=== PATIENT | male | born 1965 | race Caucasian/White ===

== ENCOUNTER 2018-09-06 09:27 | Observation (INO) | payer OTHER ==
[~2018-09-06] VITALS: Ht 172.7 cm; Wt 83.9 kg
[2018-09-06 09:28] VITALS: BP 152/95
[2018-09-06] MEDS ORDERED: PROZAC10 MG PO (09:30)
[2018-09-06 09:48] LABS: ABSOLUTE BASOPHILS 0.1 thou/uL (0.0-0.2); ABSOLUTE LYMPHOCYTES 1.7 thou/uL (0.8-5.3); ABSOLUTE MONOCYTES 0.8 thou/uL (0.0-1.2); ABSOLUTE NEUTROPHILS 3.8 thou/uL (1.6-8.1); BASOPHILS 0.9 %; EOSINOPHILS 0.7 %; HEMATOCRIT 44.5 % (42.0-52.0); HEMOGLOBIN 15.3 gm/dL (14.0-18.0); MCH 30.4 pg (26.0-34.0); MCHC 34.3 g/dL (28.0-37.0); MCV 88.5 fL (80.0-100.0); MONOCYTES 12.5 %; MPV 7.3 fl. (7.2-11.1); NUCLEATED RBCS 0 /100WBC; PLATELET COUNT* 251 thou/uL (150-400); POLYS 58.9 %; RBC 5.03 mil/uL (4.50-6.00); RDW-CV 12.2 % (10.5-14.5); WBC 6.4 thou/uL (4.0-11.0)
[2018-09-06 10:00] LABS: ANION GAP 7 mmol/L (7-16); BUN 22 mg/dL (7-18); CHLORIDE 101 mmol/L (98-107); CO2 31 mmol/L (21-32); GLUCOSE 85 mg/dL (70-99); POTASSIUM 3.9 mmol/L (3.5-5.1); SODIUM 139 mmol/L (136-145)
[2018-09-06 10:07] LABS: ALKALINE PHOSPHATASE 67 U/L (46-116); LIPASE 123 U/L (73-393); MAGNESIUM 2.4 mg/dL (1.8-2.4); SGOT 21 U/L (15-37); SGPT 33 U/L (30-65); TOTAL BILIRUBIN 0.5 mg/dL (<0.1-1.0); TOTAL PROTEIN 7.3 g/dL (6.4-8.2); TROPONIN-I LEVEL <0.06 ng/mL (<0.06)
--- NOTE | 2018-09-06 11:55 | EKG ---
[place] [address] ELECTROCARDIOGRAM REPORT Name: LISSETH KAN Room: [place] [address] ADM IN .R.#: [id number] Admission: 09/06/18 Attend Phys: Matteo Barnes Discharge: Date of : 69 Report #: [id number] THIS REPORT FOR: //name// [facility] ED Test Date: 2018-09-06 Test Time: 09:30:40 Pat Name: LISSETH LOMBARDINTON Department: Room: [facility] Gender: Oil Processing Technician: Tenisha TIRADO : 1965 Requested By: Bry Vyas Order Number: [id number] MD: Sage Alejandra Measurements Intervals [place] Rate: 87 P: 61 [place]: 156 QRS: 2 QRSD: 95 T: 18 QT: 379 QTc: 456 Interpretive Statements Sinus rhythm No previous ECG available for comparison Electronically Signed On 09-06-2018 11:55:39 BAKERY SALES CLERK by Sage Alejandra [email or web address] <ELECTRONICALLY SIGNED> By: Sage Alejandra MD, [facility] 09/06/18 1155 0930 9 Sage Alejandra MD, FACC /EPI
[2018-09-06 14:20] VITALS: BP 125/83
[2018-09-06 14:23] VITALS: BP 103/77
--- NOTE | 2018-09-06 14:39 | EXE ---
[place] [address] STRESS ECHOCARDIOGRAM Name: LISSETH KAN Room: [address] IN [facility]#: [id number] Admission: 09/06/18 Attend Phys: Shamika Boone Discharge: Date of : 69 Date of Service: 09/06/18 1439 Report #: [id number] THIS REPORT FOR: //name// APPROVED REPORT Study performed: 09/06/2018 13:41:27 Exam: Stress Echocardiogram Indication: Chest pain , Dyspnea Patient Location: In-Patient Stress Nurse: Annalisa Morton RN Room #: Supervising Physician: Sage Alejandra MD Ht: 5 ft 8 in HR: 75 bpm BP: 110/71 mmHg Medical History Cardiac Risk Factors: Tobacco History (Former), FHX of CAD Procedure The patient underwent an Exercise Stress Test using the Imer Protocol. Blood pressure, heart rate, and EKG were monitored. An Echocardiogram was performed by associate technician in four stages in quad fashion. At peak stress, four selected images were obtained and placed side by side with resting images for comparison. Stress Test Details Stress Test: Exercise stress testing was performed using a Imer protocol. HR Resting HR: 75 bpm Max Heart Rate (APMHR): 170 bpm Max HR Achieved: 143 bpm Target HR (85% APMHR): 144 bpm % of APMHR: 84 Recovery HR: 91 bpm HR response to stress: Normal HR response to stress BP Resting BP: 110/71 mmHg Max BP: 173/96 mmHg Recovery BP: 164/97 mmHg BP response to stress: Normal blood pressure [place] [address] STRESS ECHOCARDIOGRAM Name: LISSETH KAN Room: [address]#: [id number] Admission: 09/06/18 Attend Phys: Shamika Boone Discharge: Date of : 69 Date of Service: 09/06/18 1439 Report #: [id number] Resting ECG: Sinus Rhythm Stress ECG: Sinus Tachycardia ST Change: Normal Maximum ST Deviation: 0 mm Arrhythmia: None Recovery ECG: Sinus Rhythm Recovery ST Change: Normal Recovery ST Deviation: 0 mm Recovery Arrhythmia: None Clinical Reason for Termination: Dyspnea, Maximal effort Exercise duration: 9 min 48 sec Highest Stage Achieved: Stage 4: 4.2 mph at 16% grade. Exercise capacity: 11.44 METs Pre-Stress Echo The resting Echocardiogram showed normal left ventricular contractility with an estimated Ejection Fraction of about 55-60%. Post-Stress Echo The stress Echocardiogram showed normal left ventricular contractility with an estimated Ejection Fraction of about 65-70%. Conclusion Clinical Response: Equivocal Exercise Capacity: Average Stress ECG Response: Non-ischemic Stress Echo Images: Non-ischemic low risk stress echo for future cardiac events Other Information Study Quality: Good <Conclusion> low risk stress echo for future cardiac events <ELECTRONICALLY SIGNED> By: Sage Alejandra MD, FACC 09/06/181438 38 38 Sage Alejandra MD, FACC /INF
[2018-09-06] MEDS ORDERED: CYMBALTA60 MG PO (14:41)
[2018-09-06 15:47] VITALS: BP 103/77
--- NOTE | 2018-09-06 16:01 | EKG ---
[place] [address] ELECTROCARDIOGRAM REPORT Name: LISSETH KAN Room: [address] ADM IN M.R.#: [id number] Admission: 09/06/18 Attend Phys: Matteo Barnes Discharge: Date of : 69 Report #: [id number] THIS REPORT FOR: //name// [facility] ED Test Date: 2018-09-06 Test Time: 11:48:58 Pat Name: LISSETH KAN Department: Room: [facility] Gender: Body Engineer: Tenisha TIRADO : 1965 Requested By: Bry Vyas Order Number: [id number] MD: Sage Alejandra Measurements Intervals [place] Rate: 76 P: 37 [place]: 175 QRS: -16 QRSD: 98 T: 17 QT: 368 QTc: 414 Interpretive Statements Sinus rhythm Borderline left axis deviation Artifact in lead(s) I,aVR,aVL,aVF Compared to ECG 09/06/2018 09:30:40 No significant changes Electronically Signed On 09-06-2018 16:01:37 GAS STATION ATTENDANT by Sage Alejandra [email or web address] <ELECTRONICALLY SIGNED> By: Sage Alejandra MD, FACC 09/06/18 1601 1148 1148 Sage Alejandra MD, [facility] /EPI
--- NOTE | 2018-09-06 16:02 | EKG ---
[place] [address] ELECTROCARDIOGRAM REPORT Name: LISSETH KAN Room: [address] ADM IN M.R.#: [id number] Admission: 09/06/18 Attend Phys: Matteo Barnes Discharge: Date of : 69 Report #: [id number] THIS REPORT FOR: //name// [facility] ED Test Date: 2018-09-06 Test Time: 11:50:04 Pat Name: LISSETH LUCIUS Department: Room: [facility] Gender: Interim Controller: Tenisha TIRADO : 1965 Requested By: Bry Vyas Order Number: [id number] MD: Sage Alejandra Measurements Intervals [place] Rate: 75 P: 36 [place]: 166 QRS: -8 QRSD: 100 T: 26 QT: 386 QTc: 432 Interpretive Statements Sinus rhythm Electronically Signed On 09-06-2018 16:02:02 CHAMPAGNE MAKER by Sage Alejandra [email or web address] <ELECTRONICALLY SIGNED> By: Sage Alejandra MD, [facility] 09/06/18 1602 1150 1150 Sage Alejandra MD, FACC /EPI
== END 2018-09-06 16:00 | disposition home or self-care (01) ==
LOC: M.ERS 09:27 → M.TBA-ER 10:16 → M.2W 10:16
PROVIDERS: Emergency Medicine Emergency Medical Services; ADMIT Internal Medicine
DX: I20.0 Unstable angina (principal); F32.9 Major depressive disorder, single episode, unspecified; F10.21 Alcohol dependence, in remission; Z87.891 Personal history of nicotine dependence; Z98.890 Other specified postprocedural states; Z79.899 Other long term (current) drug therapy

== ENCOUNTER → 2019-09-21 | Outpatient (CLI) | payer OTHER ==
[~2019-09-21] MED LIST: CYMBALTA60 MG PO; PROZAC10 MG PO
== END ==
LOC: M.ULTRA 09-14 09:00
DX: K44.9 Diaphragmatic hernia without obstruction or gangrene (principal); M79.89 Other specified soft tissue disorders; M79.604 Pain in right leg

== ENCOUNTER 2019-10-31 10:38 | Observation (INO) | payer OTHER ==
[~2019-10-31] VITALS: Ht 172.7 cm; Wt 86.2 kg
--- NOTE | ~2019-10-31 | H ---
[address] [address] HISTORY AND PHYSICAL Name: LISSETH KAN Room: [address] Christina Mccormick#: [id number] Admission: 10/31/19 Attend Phys: Teddy Christina DO Discharge: 11/01/19 Date of : 69 Report #: [id number] THIS REPORT FOR: //name// Please refer to the History and Physical performed in the physician's office. By: [id number] Records Staff DAVID /ORION
--- NOTE | ~2019-10-31 | OP ---
[facility] [address] [place] [address] OPERATIVE REPORT Name: LISSETH KAN Room: [address] Christina Mccormick#: [id number] Admission: 10/31/19 Attend Phys: Teddy Christina DO Discharge: 11/01/19 Date of : 69 Report #: [id number] THIS REPORT FOR: //name// CC: Teddy Shore DATE OF SERVICE: 10/31/2019 PREOPERATIVE DIAGNOSIS: Incisional/ventral hernia. POSTOPERATIVE DIAGNOSIS: Incisional/ventral hernia. PROCEDURE: Da Kasie robotic-assisted ventral hernia repair with 20 x 15 cm Ventralight mesh and also lysis of adhesions taking 45 minutes. SURGEON: Teddy Christina DO SWITCH OPERATOR: Missael Jung DO, PGY3, resident. ANESTHESIA: General endotracheal and TAP blocks. ESTIMATED BLOOD LOSS: Less than 20 mL. COMPLICATIONS: None. REFERRING PHYSICIAN: Xiomara Shore DO DESCRIPTION OF PROCEDURE: After obtaining proper consents and discussing risks and complications with the patient, he was taken to the operating room, laid in the supine position, administered general anesthesia. He was then prepped and draped in the usual sterile fashion including placing a bump under the right side. We then performed a timeout confirmed the appropriate patient and procedure. Preoperative antibiotics had been given. SCDs were in place. The patient had been prepped and draped in the usual sterile fashion. We then made a small right subcostal incision. A 12-mm Visiport was then used to enter the abdominal cavity. Once the abdominal cavity was entered, insufflation was begun. Once insufflation was complete, full visual inspection of the anterior abdominal organs was performed. This revealed adhesions along the entire midline. We were not able to visualize a hernia at this point because of the adhesions. We then placed two more 8 mm da Kasie ports. We then docked the da Kasie robot to all of these ports and brought an 8 mm port down through our 12 mm Visiport. We then inserted instruments and I broke scrub and went on console. Once on console, I began by taking down the omental adhesions along the midline. In doing this, we did identify multiple hernias as well as diastasis recti in the midline. The lysis of adhesions was done using blunt and sharp dissection with monopolar scissors and bipolar cautery [place] [address] OPERATIVE REPORT Name: LISSETH KAN Room: [address] Christina Mccormick#: [id number] Admission: 10/31/19 Attend Phys: Teddy Christina DO Discharge: 11/01/19 Date of : 69 Report #: [id number] was done to take down the adhesions across the entire abdominal cavity from the xiphoid all the way down to the pubic bone as well. Once these adhesions were all taken down, which lasted approximately 45 minutes, I was easily able to visualize multiple hernias along the midline from the umbilicus up to the xiphoid. At this point, we elected to close the hernia defects, all is one. I inserted 2 permanent Quill sutures, 0 Quill. Then, I was able to close the hernia defect in a running fashion from the top down to the middle and then from the bottom up to the middle of the incision. Once the entire defect was closed, I then placed a ruler inside the abdominal cavity, we identified that the hernia defect was approximately 15 cm long x about 5 cm wide and we elected to use a 20 x 15 cm Ventralight mesh with the MiTú positioning system. This was inserted and held up against the abdominal wall. I then used a 2-0 absorbable V-Loc suture to sew the mesh in 360 degrees around the supporting structures to hold it up against the abdominal wall. Once this was completed, I then removed the support and these were taken out through the 12 mm trocar site along with the needles that were used. I then rescrubbed and went back to the patient's bedside. At this point, we removed the 12 mm trocar and used a PMI closure device to close the fascia of this area. We then removed the remaining 8 mm trocars and closed all the skin incisions using 4-0 Monocryl subcuticular stitches. Mastisol, Steri-Strips, sterile OpSite and pressure dressings were placed. The patient was awakened in the operating room and transported to recovery room in stable condition. Sponge, needle and instrument counts were all correct x3 at the end of the procedure. By: [id number] Marley Christina DO /nichelle
[~2019-10-31 10:38] MED LIST changes: +ANTABUSE250 M1 PO; +LISINOPRIL2.5 M1 PO; +PLAVIX 75 MG TA75 MG PO
--- NOTE | 2019-10-31 17:14 | EKG ---
[place] [address] ELECTROCARDIOGRAM REPORT Name: LISSETH KAN Room: [address] M.R.#: [id number] Admission: 10/31/19 Attend Phys: Teddy Christina DO Discharge: Date of : 69 Report #: [id number] THIS REPORT FOR: //name// [facility] Test Date: 2019-10-31 Test Time: 11:58:38 Pat Name: LISSETH LUCIUS Department: Room: [facility] Gender: M Client Services Manager: DEJAH : 1965 Requested By: Teddy Christina Order Number: [id number] MD: Neeraj Jones Measurements Intervals [place] Rate: 66 P: 1 [place]: 166 QRS: 8 QRSD: 97 T: 20 QT: 399 QTc: 418 Interpretive Statements Sinus rhythm Compared to ECG 09/06/2018 11:50:04 No significant changes Electronically Signed On 10-31-2019 17:14:05 SECURITY SPECIALIST by Neeraj Jones [email or web address] <ELECTRONICALLY SIGNED> By: Neeraj Jones MD, [facility] 10/31/19 1714 1158 1158 Neeraj Jones MD, FACC /EPI
--- NOTE | 2019-10-31 19:08 | NUR ---
TOOK OVER PT CARE FROM PACU ABOUT 1829. VITALS STABLE. IV PATENT. DENIED PAIN MEDS. DENIED NAUSEA. ABD BINDER IN PLACE. CALL LIGHT WITHIN REACH. WILL CONTINUE TO MONITOR.
[2019-10-31 20:00] VITALS: BP 113/74
[2019-11-01 00:34] VITALS: BP 109/67
[2019-11-01 04:52] VITALS: BP 122/74
--- NOTE | 2019-11-01 08:03 | NUR ---
PT A+O X4. DIFFICULTY MANAGING PT'S PAIN @ BEGINNING OF SHIFT. ADDED TORADOL WITH PT'S PAIN MEDICATIONS AND WAS ABLE TO GET PAIN UNDER CONTROL WITH PT GETTING OUT OF BED AND BEING ABLE TO WALK TO THE BATHROOM THIS AM. TOLERATED FOOD AND DRINK WELL. CALL LIGHT IN REACH. HOURLY ROUNDING FOR SAFETY.
[2019-11-01 08:42] VITALS: BP 115/71
[2019-11-01 11:55] VITALS: BP 115/71
[2019-11-01] MEDS ORDERED: ROXICODONE5 MG PO (12:06)
--- NOTE | 2019-11-01 12:32 | NUR ---
PT DISCHARGED TO HOME WITH NURSING STAFF AND AT 1232. IV OUT. PT STABLE UPON DISCHARGE. LAP SITES C/D/I. ABD BINDER IN PLACE. PAIN CONTROLLED. DENIED N/V. PERSONAL ITEMS, PAPER SCRIPTS AND CARE NOTES SENT WITH PT.
== END 2019-11-01 12:33 | disposition home or self-care (01) ==
LOC: M.SUR 10:38 → M.TBA 15:33 → M.ORTHSURG 18:17
PROVIDERS: ADMIT Surgery
DX: K43.2 Incisional hernia without obstruction or gangrene (principal); F41.9 Anxiety disorder, unspecified; I10 Essential (primary) hypertension; E78.5 Hyperlipidemia, unspecified; F17.210 Nicotine dependence, cigarettes, uncomplicated; Z79.899 Other long term (current) drug therapy

== ENCOUNTER 2020-06-26 11:15 | Emergency (ER) | payer OTHER ==
[~2020-06-26] VITALS: Ht 177.8 cm; Wt 72.6 kg
[~2020-06-26 11:15] MED LIST changes: +ROXICODONE5 MG PO
[2020-06-26 12:13] LABS: URINE BILIRUBIN NEGATIVE (Negative); URINE BLOOD NEGATIVE (Negative); URINE CLARITY CLEAR; URINE COLOR YELLOW; URINE GLUCOSE-RANDOM NEGATIVE (Negative); URINE KETONES NEGATIVE (Negative); URINE LEUKOCYTES NEGATIVE (Negative); URINE NITRITE NEGATIVE (Negative); URINE PROTEIN NEGATIVE (Negative); URINE SPECIFIC GRAVITY <= 1.005 (1.005-1.030); URINE UROBILINOGEN 0.2 E.U./dl (0.2-1.0)
[2020-06-26 12:20] LABS: AMP/METHAMP Negative (Negative); BARBITURATES Negative (Negative); BENZODIAZEPINES Negative (Negative); COCAINE Negative (Negative); METHADONE Negative (Negative); OPIATES Negative (Negative); PCP Negative (Negative); THC Negative (Negative)
[2020-06-26 12:29] LABS: CALCIUM 8.3 mg/dL (8.5-10.1)
[2020-06-26 12:32] LABS: HEMATOCRIT 47.8 % (42.0-52.0); HEMOGLOBIN 17.1 gm/dL (14.0-18.0); MCH 31.4 pg (26.0-34.0); MCHC 35.9 g/dL (28.0-37.0); MCV 87.4 fL (80.0-100.0); MPV 6.7 fl. (7.2-11.1); RBC 5.47 mil/uL (4.50-6.00); RDW-CV 13.1 % (10.5-14.5); WBC 7.8 thou/uL (4.0-11.0)
[2020-06-26 12:34] LABS: ALBUMIN 4.3 g/dL (3.4-5.0); TOTAL BILIRUBIN 0.3 mg/dL (<0.1-1.0); TOTAL PROTEIN 8.2 g/dL (6.4-8.2)
[2020-06-26 12:45] LABS: ALCOHOL 246 mg/dL (<10); SALICYLATE 3.7 mg/dL (2.8-20.0)
[2020-06-26 12:47] LABS: ACETAMINOPHEN < 2 ug/mL (10-30)
[2020-06-26 18:08] VITALS: BP 120/71
== END 2020-06-26 18:08 | disposition home or self-care (01) ==
LOC: M.ERS 11:15
PROVIDERS: Personal Emergency Response Attendant
DX: F10.129 Alcohol abuse with intoxication, unspecified (principal); F32.9 Major depressive disorder, single episode, unspecified; G89.29 Other chronic pain; I10 Essential (primary) hypertension; Z87.891 Personal history of nicotine dependence; Z79.899 Other long term (current) drug therapy; Z98.890 Other specified postprocedural states; Y90.9 Presence of alcohol in blood, level not specified

== ENCOUNTER 2020-10-22 19:37 | Emergency (ER) | payer OTHER ==
[~2020-10-22] VITALS: Ht 175.3 cm; Wt 86.2 kg
[2020-10-22 20:51] LABS: URINE BILIRUBIN NEGATIVE (Negative); URINE BLOOD NEGATIVE (Negative); URINE CLARITY CLEAR; URINE COLOR YELLOW; URINE GLUCOSE-RANDOM NEGATIVE (Negative); URINE KETONES NEGATIVE (Negative); URINE LEUKOCYTES-REFLEX NEGATIVE (Negative); URINE NITRITE-REFLEX NEGATIVE (Negative); URINE PROTEIN NEGATIVE (Negative); URINE UROBILINOGEN 0.2 E.U./dl (0.2-1.0)
[2020-10-22 20:59] LABS: AMP/METHAMP Negative (Negative); BARBITURATES Negative (Negative); BENZODIAZEPINES Negative (Negative); COCAINE Negative (Negative); METHADONE Negative (Negative); OPIATES Negative (Negative); PCP Negative (Negative); THC Negative (Negative)
[2020-10-22 21:06] LABS: ABSOLUTE BASOPHILS 0.1 thou/uL (0.0-0.2); ABSOLUTE LYMPHOCYTES 1.8 thou/uL (0.8-5.3); ABSOLUTE MONOCYTES 0.5 thou/uL (0.0-1.2); ABSOLUTE NEUTROPHILS 3.7 thou/uL (1.6-8.1); BASOPHILS 1.3 %; EOSINOPHILS 0.1 %; HEMATOCRIT 45.5 % (42.0-52.0); HEMOGLOBIN 15.7 gm/dL (14.0-18.0); LYMPHOCYTES 29.3 %; MCH 30.1 pg (26.0-34.0); MCHC 34.6 g/dL (28.0-37.0); MCV 87.1 fL (80.0-100.0); MONOCYTES 8.4 %; MPV 6.8 fl. (7.2-11.1); NUCLEATED RBCS 0 /100WBC; PLATELET COUNT* 305 thou/uL (150-400); POLYS 60.9 %; RBC 5.23 mil/uL (4.50-6.00); RDW-CV 12.8 % (10.5-14.5)
[2020-10-22 21:11] LABS: CALCIUM 8.5 mg/dL (8.5-10.1); CREATININE 0.8 mg/dL (0.6-1.3); POTASSIUM 3.8 mmol/L (3.5-5.1)
[2020-10-22 21:16] LABS: ALBUMIN 4.1 g/dL (3.4-5.0); TOTAL BILIRUBIN 0.5 mg/dL (<0.1-1.0); TOTAL PROTEIN 7.6 g/dL (6.4-8.2)
[2020-10-22 21:40] VITALS: BP 140/90
== END 2020-10-22 21:40 | disposition home or self-care (01) ==
LOC: M.ERS 19:37
PROVIDERS: Personal Emergency Response Attendant
DX: F10.129 Alcohol abuse with intoxication, unspecified (principal); Y90.8 Blood alcohol level of 240 mg/100 ml or more; I10 Essential (primary) hypertension; G89.29 Other chronic pain; Z95.5 Presence of coronary angioplasty implant and graft; Z87.891 Personal history of nicotine dependence

== ENCOUNTER 2020-12-28 09:45 | Emergency (ER) | payer OTHER ==
[~2020-12-28] VITALS: Ht 172.7 cm; Wt 95.3 kg
[2020-12-28 10:10] LABS: ABSOLUTE BASOPHILS 0.1 thou/uL (0.0-0.2); ABSOLUTE LYMPHOCYTES 1.9 thou/uL (0.8-5.3); ABSOLUTE MONOCYTES 0.7 thou/uL (0.0-1.2); ABSOLUTE NEUTROPHILS 3.9 thou/uL (1.6-8.1); BASOPHILS 0.8 %; HEMOGLOBIN 15.8 gm/dL (14.0-18.0); LYMPHOCYTES 28.7 %; MCH 29.8 pg (26.0-34.0); MCHC 34.3 g/dL (28.0-37.0); MCV 86.7 fL (80.0-100.0); MONOCYTES 10.3 %; MPV 6.4 fl. (7.2-11.1); NUCLEATED RBCS 0 /100WBC; PLATELET COUNT* 348 thou/uL (150-400); POLYS 60.2 %; WBC 6.6 thou/uL (4.0-11.0)
[2020-12-28 10:19] LABS: CALCIUM 7.8 mg/dL (8.5-10.1); POTASSIUM 3.6 mmol/L (3.5-5.1)
[2020-12-28 10:23] LABS: ALBUMIN 3.9 g/dL (3.4-5.0); TOTAL BILIRUBIN 0.6 mg/dL (<0.1-1.0); TOTAL PROTEIN 7.1 g/dL (6.4-8.2)
[2020-12-28 13:49] VITALS: BP 151/95
== END 2020-12-28 13:51 | disposition home or self-care (01) ==
LOC: M.ERS 09:45
PROVIDERS: Family Medicine
DX: F10.129 Alcohol abuse with intoxication, unspecified (principal); Y90.8 Blood alcohol level of 240 mg/100 ml or more; I10 Essential (primary) hypertension; G89.29 Other chronic pain; Z95.5 Presence of coronary angioplasty implant and graft; Z87.891 Personal history of nicotine dependence